=== PATIENT | female | born 1955 | race Hispanic/Latino ===

== ENCOUNTER → 2019-12-11 | Outpatient (CLI) | payer OTHER ==
[~2019-12-11] MED LIST: IOPAMIDOL 370 MG/ML 200 ML INFUS..BTL INJ ONE; SODIUM CHLORIDE 0.9% 50ML 50 ML ONE
[2019-12-11 08:22] LABS: BLOOD UREA NITROGEN 12 mg/dL (7-26); BUN/CREATININE RATIO 14 (6-25); CREATININE, SERUM 0.86 mg/dL (0.57-1.11); EST GLOMERULAR FILTRATION RATE > 60 ML/MIN (60-)
--- NOTE | 2019-12-11 09:48 | Diagnostic Imaging Report ---
EXAM: CT Chest, Abdomen and Pelvis WITH intravenous contrast INDICATION: Cervical cancer, restaging COMPARISON: None. TECHNIQUE: The chest, abdomen and pelvis were scanned utilizing a multidetector helical scanner from the thoracic inlet to the pubic symphysis following administration of IV contrast. Coronal and sagittal reformations were obtained. Scan was performed during portal venous phase. IV CONTRAST: 100cc Isovue 370 ORAL CONTRAST: Water COMPLICATIONS: None RADIATION DOSE: Total DLP: 522 mGy*cm Dose modulation, iterative reconstruction, and/or weight based adjustment of the mA/kV was utilized to reduce the radiation dose to as low as reasonably achievable. FINDINGS: LINES/ TUBES: Right chest port terminates in the superior vena cava. LUNGS AND AIRWAYS: The central airways are patent. No focal consolidation or pulmonary edema. Bilateral upper lobe predominant centrilobular emphysema. 4 mm right middle lobe noncalcified granuloma. PLEURA: The pleural spaces are clear. HEART AND MEDIASTINUM: The thyroid gland is normal. No mediastinal, hilar or axillary lymphadenopathy. The heart is normal in size.. There is no pericardial effusion. Mild atherosclerotic calcifications involve the aorta and coronary arteries. HEPATOBILIARY: Diffuse hepatic steatosis. No focal liver lesions. No biliary ductal dilation. Unremarkable gallbladder. SPLEEN: No splenomegaly. PANCREAS: No focal masses or ductal dilatation. ADRENALS: 3.4 x 2.8 x 3.2 cm heterogeneously attenuating left adrenal nodule. KIDNEYS/URETERS: No hydronephrosis, stones, or solid mass lesions. PELVIC ORGANS/BLADDER: Status post hysterectomy and cystectomy. PERITONEUM / RETROPERITONEUM: No free air or fluid. LYMPH NODES: Bilateral prominent inguinal lymph nodes do not made size criteria for lymphadenopathy. VESSELS: Atherosclerotic calcifications of the abdominal aorta and major branches. 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 GI TRACT: No abnormal bowel thickening. No bowel obstruction. Right lower quadrant ostomy. BONES AND SOFT TISSUES: No acute osseous injury. No suspicious lytic or blastic lesions. Chronic appearing posterior medical findings at the posterior aspect of L3 with a bony fragment protruding through the spinal canal. IMPRESSION: 3.4 x 2.8 x 3.2 cm heterogeneously attenuating left adrenal nodule. This is indeterminate on single phase imaging. Comparison to prior staging studies, if available, would be helpful (at which point an addendum can be initiated to this report). If no prior imaging available, recommend follow-up adrenal mass protocol CT for further evaluation. Otherwise, no evidence of metastatic disease in the chest, abdomen or pelvis. Signed by: Rosalinda Escalera MD on 12/11/2019 9:44 AM
== END ==
LOC: CT 07:36
PROVIDERS: ATTEND Internal Medicine Hematology & Oncology
DX: C68.0 Malignant neoplasm of urethra (principal); C53.9 Malignant neoplasm of cervix uteri, unspecified
CPT/HCPCS: 36415; 71260; 74177; 82565; 84520; Q9967